=== PATIENT | female | born 1955 | race Caucasian/White ===

== ENCOUNTER 2019-12-25 11:18 | Inpatient (IN) | payer OTHER ==
[~2019-12-25] VITALS: Ht 160 cm; Wt 77.1 kg
--- NOTE | ~2019-12-25 | PROC ---
[address] [address] PROCEDURE REPORT Name: MALATHI ROBERSON Room: [address] IN M.R.#: [id number] Admission: 12/26/19 Attend Phys: Debbie Cook MD Discharge: 12/27/19 Date of : 59 Report #: [id number] THIS REPORT FOR: //name// cc: Santa Tomlin MD, Jayne Lora MD ~ THIS REPORT FOR: //name// For GI report, please see the Provation report in Perceptive 7 content. By: [facility]1Medical Records Staff [facility] /[facility]
[2019-12-25 11:25] VITALS: BP 135/62
[2019-12-25 11:56] LABS: URINE BLOOD 2+ (Negative); URINE CLARITY CLEAR; URINE COLOR YELLOW; URINE GLUCOSE-RANDOM NEGATIVE (Negative); URINE KETONES NEGATIVE (Negative); URINE LEUKOCYTES-REFLEX NEGATIVE (Negative); URINE NITRITE-REFLEX NEGATIVE (Negative); URINE PROTEIN 1+ (Negative); URINE SPECIFIC GRAVITY 1.025 (1.005-1.030); URINE UROBILINOGEN 0.2 E.U./dl (0.2-1.0)
[2019-12-25 11:58] LABS: ICTOTEST (BILI CONFIRMATORY) Negative (Negative); URINE BILIRUBIN 1+ (Negative)
[2019-12-25 12:07] LABS: BACTERIA-REFLEX 1-9 Few /HPF (None Seen); CASTS None Seen /LPF (None Seen); CRYSTALS None Seen /LPF (None Seen); MUCUS None Seen strn/LPF (None Seen); SQUAMOUS 4-10 Moderate /LPF (0-3); URINE RBC 3-10 Few /HPF (0-2); URINE WBC-REFLEX 0-5 Rare /HPF (0-5)
[2019-12-25 12:08] LABS: ABSOLUTE BASOPHILS 0.1 thou/uL (0.0-0.2); ABSOLUTE LYMPHOCYTES 1.1 thou/uL (0.8-5.3); ABSOLUTE MONOCYTES 1.1 thou/uL (0.0-1.2); ABSOLUTE NEUTROPHILS 15.6 thou/uL (1.6-8.1); BASOPHILS 0.3 %; HEMATOCRIT 39.1 % (37.0-47.0); HEMOGLOBIN 13.4 gm/dL (12.0-15.0); LYMPHOCYTES 6.4 %; MCH 30.2 pg (26.0-34.0); MCHC 34.2 g/dL (28.0-37.0); MCV 88.5 fL (80.0-100.0); MPV 7.6 fl. (7.2-11.1); NUCLEATED RBCS 0 /100WBC; PLATELET COUNT* 248 thou/uL (150-400); POLYS 87.3 %; RBC 4.42 mil/uL (4.20-5.00); RDW-CV 13.5 % (10.5-14.5); WBC 17.8 thou/uL (4.0-11.0)
[2019-12-25 12:16] LABS: CALCIUM 8.7 mg/dL (8.5-10.1); CREATININE 0.9 mg/dL (0.6-1.3); POTASSIUM 3.6 mmol/L (3.5-5.1)
[2019-12-25 12:20] LABS: ALBUMIN 3.9 g/dL (3.4-5.0); TOTAL BILIRUBIN 0.7 mg/dL (<0.1-1.0); TOTAL PROTEIN 7.8 g/dL (6.4-8.2)
--- NOTE | 2019-12-25 16:13 | EKG ---
[place] [address] ELECTROCARDIOGRAM REPORT Name: MALATHI ROBERSON Room: [address]#: [id number] Admission: 12/25/19 Attend Phys: Debbie Cook, Discharge: Date of : 59 Date of Service: 12/25/19 1129 Report #: [id number] THIS REPORT FOR: //name// [facility] ED Test Date: 2019-12-25 Test Time: 11:29:16 Pat Name: MALATHI ROBERSON Department: Room: [facility] Gender: F Apiarist: MS : 1955 Requested By: Kai Henry Order Number: [id number] MD: Francisco Lovell Measurements Intervals [place] Rate: 111 P: 59 NH: 119 QRS: 27 QRSD: 93 T: 38 QT: 335 QTc: 455 Interpretive Statements Sinus tachycardia Probable left atrial enlargement Minimal ST depression, diffuse leads Baseline wander in lead(s) II,III,aVR,aVF,V4,V5,V6 No previous ECG available for comparison Electronically Signed On 12-25-2019 16:12:32 CDT by Francisco Lovell [email or web address] <ELECTRONICALLY SIGNED> By: Francisco Lovell MD, FAC 12/25/19 1612 1129 1129 Francisco Loevll MD, FAC /EPI
[2019-12-25 18:37] VITALS: BP 140/75
[2019-12-25 19:30] VITALS: BP 142/73
[2019-12-26 03:53] LABS: HEMATOCRIT 34.8 % (37.0-47.0); HEMOGLOBIN 11.8 gm/dL (12.0-15.0); MCH 30.3 pg (26.0-34.0); MCHC 33.9 g/dL (28.0-37.0); MCV 89.4 fL (80.0-100.0); MPV 7.8 fl. (7.2-11.1); RBC 3.89 mil/uL (4.20-5.00); RDW-CV 13.6 % (10.5-14.5); WBC 15.6 thou/uL (4.0-11.0)
[2019-12-26 04:09] LABS: ALBUMIN 3.2 g/dL (3.4-5.0); CALCIUM 7.8 mg/dL (8.5-10.1); CREATININE 0.8 mg/dL (0.6-1.3); MAGNESIUM 2.1 mg/dL (1.8-2.4); POTASSIUM 3.6 mmol/L (3.5-5.1); TOTAL BILIRUBIN 0.5 mg/dL (<0.1-1.0); TOTAL PROTEIN 6.5 g/dL (6.4-8.2)
--- NOTE | 2019-12-26 07:43 | NUR ---
Admit last evening at 1845. She has been having nausea,vomiting and bloody diarrhea.Alert & oreinted x 4. She is up independntly in the room. Pain meds x 2. GI consult called to answering service this am.
[2019-12-26 08:00] VITALS: BP 137/59
--- NOTE | 2019-12-26 14:00 | NUR ---
PT.ALERT AND ORIENTED. LIVES ALONE BUT HAS SUPPORTIVE CHILDREN. NO USE OF DME OR HX OF HH. SHE WORKS [employer]. NO DISCHARGE NEEDS IDENTIFIED.
--- NOTE | 2019-12-26 17:58 | NUR ---
PT IS A/O X4,VSS,MED-SURG STATUS.PAIN MANAGED WELL WITH PO MEDICATIONS.N/V MANAGED WELL WITH IV MEDICATIONS.PT TOLERATING CLEAR LIQUID DIET.NPO AT MIDNIGHT FOR COLONSCOPY TOMORROW.CONSENT SIGNED AND ON THE CHART.BOWEL PREP STARTED.PT INFORMED OF PLAN OF CARE AND COMMUNICATES UNDERSTANDING.CALL LIGHT WITHIN REACH.WILL CONTINUE TO MONITOR FOR DURATION OF SHIFT.
--- NOTE | 2019-12-26 18:26 | NUR ---
pt not tolerating golytely.gi physician notified with new orders received.
[2019-12-26 20:30] VITALS: BP 133/70
[2019-12-27 03:50] LABS: HEMATOCRIT 32.2 % (37.0-47.0); MCH 30.6 pg (26.0-34.0); MCHC 34.2 g/dL (28.0-37.0); MCV 89.3 fL (80.0-100.0); RBC 3.6 mil/uL (4.20-5.00); RDW-CV 13.7 % (10.5-14.5); WBC 18.6 thou/uL (4.0-11.0)
[2019-12-27 04:06] LABS: CALCIUM 7.6 mg/dL (8.5-10.1); CREATININE 0.7 mg/dL (0.6-1.3); MAGNESIUM 2.1 mg/dL (1.8-2.4); POTASSIUM 3.3 mmol/L (3.5-5.1); TOTAL BILIRUBIN 0.4 mg/dL (<0.1-1.0); TOTAL PROTEIN 6.5 g/dL (6.4-8.2)
--- NOTE | 2019-12-27 06:35 | NUR ---
PT A&O, VSS ON RA. MEDS GIVEN ORDERED. PAIN MANAGED WITH HYDROCODONE. BOWEL PREP DONE, CLEAR STOOL NOTED. NPO SINCE MIDNIGHT. ELECTROLYTE REPLACEMENT IN PROGRESS. WILL CONTINUE TO MONITOR.
[2019-12-27 08:03] VITALS: BP 152/72
[2019-12-27 11:02] VITALS: BP 152/72
[2019-12-27] MEDS ORDERED: CIPRO500 M1 PO (11:42)
[2019-12-27] MEDS ORDERED: FLAGYL500 M1 PO (11:42)
[2019-12-27] MEDS ORDERED: ZOFRAN ODT4 MG PO (11:43)
--- NOTE | 2019-12-27 12:57 | NUR ---
PT DISCHARGED TO HOME AT 1250 WITH NURSING STAFF. IV OUT. DENIED PAIN. TOLERATED LUNCH, DENIED NAUSEA/VOMITING. PT STABLE UPON DISCHARGE. PRESCRIPTIONS CALLED INTO [facility] [place] [facility] [address] PER PT REQUEST. PERESONAL BELONGINGS SENT WITH PT.
--- NOTE | 2019-12-31 16:07 | PATH ---
[address] [address] PATHOLOGY RPT PROCEDURE Name: YEIMI ROBERSONSA Salas Room: [address] IN .R.#: [id number] Admission: 12/26/19 Date of : 59 Discharge: 12/27/19 Report #: [id number] Path Case #: [id number] [facility] Accession Number: [id number] . 01 Material submitted: . colon - SIGMOID COLON BIOPSIES. Modifiers: sigmoid . 01 Clinical history: . Ischemic colitis . 02 Diagnosis: Large intestine mucosa, sigmoid colon, endoscopic biopsy: - Compatible with ischemic colitis. - One fragment showing complete ulceration. - Negative for dysplasia or malignancy. (IUV:reservation manager; 12/31/2019) MBR 12/31/2019 1134 Local . 02 Comment: Examination shows ulceration, regenerative surface epithelium, and fibrotic lamina propria in addition to ghosts of the crypts. Fibrin-filled vessels are not identified within the lamina propria. Findings are compatible with ischemic colitis. The differential diagnosis includes pseudomembranous colitis. There is no evidence of dysplasia or malignancy present. Please correlate clinically. (IUV:reservation manager; 12/31/2019) . 02 Electronically signed: . Deanna Lagos MD, Pathologist NPI- [id number] . 01 Gross description: . The specimen is received in formalin, labeled "Viviane Roberson, sigmoid colon biopsys" and consists of 5 fragments of avelar-brown tissue measuring between 0.1 x 0.1 cm and 0.5 x 0.3 cm which are entirely submitted in A1. (SDY; 12/30/2019) SYU/SYU 12/30/2019 1545 Local . 02 Pathologist provided ICD-10: K52.9, K63.3 . 02 CPT . 686203 Specimen Comment: A courtesy copy of this report has been sent to [phone] Specimen Comment: [phone], Specimen Comment: Report sent to ,DR SOTOMAYOR / DR BARRIENTOS Specimen Comment: A duplicate report has been generated due [place] [address] PATHOLOGY RPT PROCEDURE Name: VIVIANE ROBERSON Room: [address] IN [facility].#: [id number] Admission: 12/26/19 Date of : 59 Discharge: 12/27/19 Report #: [id number] Path Case #: [id number] updates. Performed at: 01 [facility] Varsha Franz [address], [place], [place] [id number] MD Matteo Jimenez MD Phone: [phone] Performed at: [address] [id number] MD Deanna Lagos MD Phone: [phone]
--- NOTE | 2020-01-18 08:28 | CON ---
[address] [address] CONSULTATION Name: MALATHI ROBERSON Room: [address] IN ..#: [id number] Admission: 12/26/19 Attend Phys: Debbie Cook MD Discharge: 12/27/19 Date of : 59 Report #: [id number] THIS REPORT FOR: //name// cc: Santa Tomlin MD, Jayne Lora MD ~ THIS REPORT FOR: //name// CC: Santa Cook HISTORY OF PRESENT ILLNESS: The patient is a pleasant 64-year-old female with past medical history significant for osteoporosis, was presenting for evaluation of abdominal cramps and bloody diarrhea. The patient reports that yesterday following yardwork she began noticing abdominal cramps in the epigastric region. This was followed by one episode of diarrhea. Following the episode of diarrhea, the patient had several bloody bowel movements. The patient denies any similar episodes in the past. Denies eating outside. Denies any recent travel or sick contacts. She does have a history of constipation, but recently her bowel movements have been doing well. The patient does report taking NSAIDs intermittently for osteoarthritis in her neck. PAST MEDICAL HISTORY: Osteoporosis and osteoarthritis. PAST SURGICAL HISTORY: Nonsignificant. SOCIAL HISTORY: The patient denies smoking or recreational drug use. Takes alcohol about once a week. FAMILY HISTORY: No family history of colon cancer or Hall-related neoplasia. REVIEW OF SYSTEMS: Comprehensive 10-point review of systems is negative except for what was mentioned in the HPI. PHYSICAL EXAMINATION: VITAL SIGNS: Temperature 36.7, pulse rate 96, respirations 18, blood pressure 142/73. GENERAL: The patient is alert, awake, oriented x 3. HEENT: Pupils are equal, round, reactive to light and accommodation. Mucous membranes are moist. There is no congestion. LUNGS: Clear to auscultation bilaterally. CARDIOVASCULAR: Rate and rhythm regular, S1, S2 present. ABDOMEN: Soft. There is no distention, guarding or rigidity. EXTREMITIES: Warm, well perfused. There is no edema. SKIN: Warm and dry. ASSESSMENT AND PLAN: A pleasant 64-year-old female with past medical history significant for osteoporosis, osteoarthritis, [place] [address] CONSULTATION Name: MALATHI ROBERSON Room: [address]#: [id number] Admission: 12/26/19 Attend Phys: Debbie Cook MD Discharge: 12/27/19 Date of : 59 Report #: [id number] cramps and bloody diarrhea. I suspect the patient has ischemic colitis. We will proceed with colonoscopy tomorrow to evaluate this further. Continue Cipro and Flagyl for a total of 3 days. Further recommendations will be based on results of colonoscopy. <ELECTRONICALLY SIGNED> By: Joshua London MD 01/18/20 0828 [id number] rebecca Robins
== END 2019-12-27 12:58 | disposition home or self-care (01) | DRG 871 ==
LOC: M.ERS 11:18 → M.ORTHSURG 14:44 → M.TBA-ER 14:44 → M.ORTHSURG 18:46
PROVIDERS: Emergency Medicine Emergency Medical Services; ADMIT Internal Medicine; ATTEND Internal Medicine
PROC: 0DBN8ZX Excision of Sigmoid Colon, Via Natural or Artificial Opening Endoscopic, Diagnostic (ICD-10-PCS; principal; 2019-12-27)
DX: A41.9 Sepsis, unspecified organism (principal); K55.039 Acute (reversible) ischemia of large intestine, extent unspecified; K92.1 Melena; M19.90 Unspecified osteoarthritis, unspecified site; M81.0 Age-related osteoporosis without current pathological fracture; E86.0 Dehydration; R73.9 Hyperglycemia, unspecified